=== PATIENT | male | born 1960 | race Caucasian/White ===

== ENCOUNTER 2017-01-08 19:14 | Emergency (ER) | payer OTHER | END 2017-01-09 00:20 | disposition home or self-care (01) | LOC: ER1 19:14 | DX: I50.20 Unspecified systolic (congestive) heart failure (principal); J95.811 Postprocedural pneumothorax; I95.9 Hypotension, unspecified; E86.0 Dehydration; R30.0 Dysuria; Z95.1 Presence of aortocoronary bypass graft; Z79.82 Long term (current) use of aspirin; Z79.899 Other long term (current) drug therapy; Z88.2 Allergy status to sulfonamides | CPT/HCPCS: 36415; 71250; 81001; 93005; 96360; 99284; J7040 ==

== ENCOUNTER → 2017-01-08 | Outpatient (CLI) | payer OTHER ==
[2017-01-08 15:26] LABS: HEMOGLOBIN 8.4 gm/dl (14.0-17.5); RED BLOOD COUNT 3.35 M/UL (4.20-5.50); WHITE BLOOD COUNT 12.1 K/UL (4.5-11.0)
== END ==
LOC: LAB 11:02
PROVIDERS: Physician Assistant
DX: I25.810 Atherosclerosis of coronary artery bypass graft(s) without angina pectoris (principal); E88.81 Metabolic syndrome and other insulin resistance; J95.811 Postprocedural pneumothorax; R17 Unspecified jaundice
CPT/HCPCS: 36415; 71020; 80061; 80069; 80076; 83036; 85025